=== PATIENT | female | born 1990 | race Caucasian/White ===

== ENCOUNTER 2020-10-12 20:56 | Emergency (ER) | payer SELFPAY ==
[2020-10-12] MEDS ORDERED: NORCO 5-325 TA1 EACH PO (22:18)
[2020-10-12] MEDS ORDERED: MEDROL 4MG DOSEP4 MG PO (22:18)
== END 2020-10-12 22:35 | disposition home or self-care (01) ==
LOC: FER 20:56
DX: S46.911A Strain of unspecified muscle, fascia and tendon at shoulder and upper arm level, right arm, initial encounter (principal); F17.210 Nicotine dependence, cigarettes, uncomplicated; X58.XXXA Exposure to other specified factors, initial encounter
CPT/HCPCS: 73030; J1100

== ENCOUNTER 2021-01-28 09:55 | Emergency (ER) | payer OTHER ==
[~2021-01-28 09:55] MED LIST: MEDROL 4MG DOSEP4 MG PO; NORCO 5-325 TA1 EACH PO
[2021-01-28] MEDS ORDERED: PREDNISONE 20MG20 MG PO (12:14)
[2021-01-30] MEDS ORDERED: PREDNISONE 20MG20 MG PO (08:40)
== END 2021-01-28 12:30 | disposition home or self-care (01) ==
LOC: FER 09:55
DX: J45.909 Unspecified asthma, uncomplicated (principal); J06.9 Acute upper respiratory infection, unspecified; F17.210 Nicotine dependence, cigarettes, uncomplicated; Z88.1 Allergy status to other antibiotic agents; Z88.6 Allergy status to analgesic agent; Z20.822 Contact with and (suspected) exposure to COVID-19; Z79.899 Other long term (current) drug therapy
CPT/HCPCS: 71046; J2930; U0002

== ENCOUNTER 2021-03-04 23:22 | Emergency (ER) | payer OTHER ==
[~2021-03-04 23:22] MED LIST changes: +PREDNISONE 20MG20 MG PO
== END 2021-03-05 02:08 | disposition home or self-care (01) ==
LOC: FER 23:22
DX: M25.511 Pain in right shoulder (principal); Z88.1 Allergy status to other antibiotic agents; Z88.6 Allergy status to analgesic agent
CPT/HCPCS: 73030